=== PATIENT | female | born 1975 | race Caucasian/White ===

== ENCOUNTER 2016-09-20 23:26 | Emergency (ER) | payer MEDICAID, OTHER ==
[~2016-09-20] VITALS: Ht 154.9 cm; Wt 67.0 kg
[2016-09-20 23:35] VITALS: Ht 154.9 cm; Wt 67.0 kg
[2016-09-21] MEDS ORDERED: POLY10DR19 RIGHT EYE (00:52)
[2016-09-21] MEDS ORDERED: GUAI118L22 PO (00:52)
--- NOTE | 2016-09-21 16:30 | ERD ---
ER Documentation Chief Complaint Date/Time DATE: 09/21/16 TIME: 16:27 Chief Complaint Rt eye redness,body aches, sore throat HPI This is a 41-year-old female presenting to the department for right eye redness and discharge 1 week. Patient reports watery and yellow discharge from right eye. Patient denies pain. Patient states she has difficulty opening her eye in the morning crusting of yellow discharge. No fevers or chills. Patient also reports generalized body aches, sore throat and dry nonproductive cough 1 week. No difficulty breathing, shortness of breath, difficulty swallowing, muffled voice or drooling. No wheezing, chest pain or weakness. Patient states cough is worse at night and is having sleeping due to cough. Requesting cough syrup. Has used DayQuil without relief of symptoms. ROS All systems reviewed and are negative except as per history of present illness. Medications Home Meds Active Scripts Guaifenesin/Codeine Phosphate (CHERATUSSIN AC SYRUP) 118 Ml Liquid, 10 ML PO Q6H Y for COUGH, #118 ML Prov:EMILY SANTANA NP 09/21/16 Polymyxin B Sulfate-TMP* (Polymyxin B-TMP Eye Drops*) 10 Ml Drops, 1 DROP RIGHT EYE QID for 7 Days, EA Prov:EMILY SANTANA NP 09/21/16 Allergies Allergies: Coded Allergies: No Known Allergy (Unverified , 09/20/16) PMhx/Soc Hx Alcohol Use: No Hx Substance Use: No Hx Tobacco Use: No Physical Exam Vitals Vital Signs Date Time Temp Pulse Resp B/P Pulse Ox O2 Delivery O2 Flow Rate FiO2 09/20/16 23:35 99.0 89 18 138/71 97 Physical Exam Const: No acute distress Head: Atraumatic Eyes: Normal Conjunctiva ENT: Normal External Ears, Nose and Mouth. Neck: Full range of motion..~ No meningismus. Resp: Clear to auscultation bilaterally Cardio: Regular rate and rhythm, no murmurs Abd: Soft, non tender, non distended. Normal bowel sounds Skin: No petechiae or rashes Back: No midline or flank tenderness Ext: No cyanosis, or edema Neur: Awake and alert Psych: Normal Mood and Affect Procedures/MDM ED course Patient remains stable thought visit. MDM: 41 year old female presents to ER with right eye redness and discharge. Physical exam and symptoms consistent with bacterial conjunctivitis. Denies blurry vision, loss of vision or visual changes. Denies eye pain or foreign body sensation. Patient also has dry, non productive cough. No wheezing, chest pain, shortness of breath or difficulty breathing. Oxygen saturation 97% on room air. No fevers r chills. Requesting cough syrup to take at night to help her sleep. Low suspicion for foreign body or retinal detachment. Patient likely has bacterial conjunctivitis. Patient is appropriate for outpatient management and will be discharged with prescription for polymyxin B-TMP drops and Cheratussin syrup. Instructed patient to follow up with PCP in the next 2-3 days for reassessment. Return to ED for any new or worsening symptoms. Note provided for work absence. Patient verbalizes understanding. All questions answered at discharge. Departure Diagnosis: Primary Impression: Conjunctivitis Conjunctivitis type: acute Acute conjunctivitis type: bacterial Laterality : right Qualified Code: H10.31 - Acute bacterial conjunctivitis of right eye Additional Impression: URI (upper respiratory infection) URI type: unspecified viral URI Qualified Code: J06.9 - Viral upper respiratory tract infection Condition: Stable Patient Instructions: Conjunctivitis Caused by Infection Ref[facility] Usted se aragon hecho un examen mdico de control que le indica que no est en lyudmila condicin que requiera tratamiento urgente en el Departamento de Emergencia. Un estudio ms profundo y el tratamiento de reza condicin pueden esperar sin ningn riesgo hasta que usted sea atendida/o en el consultorio de reza mdico o lyudmila cl keny. Es responsabilidad suya arreglar lyudmila иван para el seguimiento del larry. MANEJO DE CONDICIONES NO URGENTES EN EL FUTURO 1) Si usted tiene un mdico de atencin primaria: Usted debera llamar a reza mdico de atencin primaria antes de venir al departamento de emergencia. Despus de las horas de consultorio, reza doctor o reza asociado/a est disponible por telfono. El mdico o enfermero de david en el servicio telefnico puede asesorarle por magui medio para atender el problema, o larry contrario se puede programar lyudmila иван. 2) Si usted no tiene un mdico de atencin primaria: Llame al mdico o clnica de referencia que aparece abajo alexis las horas de consultorio para hacer lyudmila иван para que le vean. CLINICAS: [facility] [phone] [facility] [phone] [facility] [phone] [place] [address] [phone] [place] [address] [phone] [facility] [phone] [address] [facility]. [facility] () Payal se aragon hecho un examen mdico de control que le indica que no est en lyudmila condicin que requiera tratamiento urgente en el Departamento de Emergencia. Un estudio ms profundo y el tratamiento de reza condicin pueden esperar sin ningn riesgo hasta que ted sea atendida/o en el consultorio de reza mdico o lyudmila cl keny. Es responsabilidad suya arreglar lyudmila иван para el seguimiento del larry. MANEJO DE CONDICIONES NO URGENTES EN EL FUTURO 1) Si usted tiene un mdico de atencin primaria: Usted debera llamar a reza mdico de atencin primaria antes de venir al departamento de emergencia. Despus de las horas de consultorio, reza doctor o reza asociado/a est disponible por telfono. El mdico o enfermero de david en el servicio telefnico puede asesorarle por magui medio para atender el problema, o larry contrario se puede programar lyudmila иван. 2) Si usted no tiene un mdico de atencin primaria: Llame al mdico o condado institucions de referencia que aparece abajo alexis las horas de consultorio para hacer lyudmila иван para que le vean. SI USTED NO PUEDE PAGAR PARA AKUA UN MEDICO puede ir a: [facility] [address] [place] [address] [facility] [address] [place] [address] [facility] [address] [place] [address] [facility] [address] [place], [place] [id number] Additional Instructions: Llame al doctor MAANA y nathaly lyudmila ИВАН PARA DENTRO DE 2-3 CARRERA.Dgale a la secretaria que nosotros le instruimos hacer esta иван.Avise o llame si reza condicin se empeora antes de la иван. Regresa aqui si peor o no mejor. Return to ED for any high fever, chest pain, difficulty breathing, shortness breath, wheezing, vomiting, diarrhea, abdominal pain or any new or worsening symptoms. EMILY SANTANA NP Sep 21, 2016 16:30
== END 2016-09-21 00:54 | disposition home or self-care (01) ==
LOC: FTE 23:26
DX: H10.31 Unspecified acute conjunctivitis, right eye (principal); J06.9 Acute upper respiratory infection, unspecified
CPT/HCPCS: 99283

== ENCOUNTER 2017-02-19 22:28 | Emergency (ER) | payer OTHER ==
[~2017-02-19] VITALS: Ht 160 cm; Wt 71.0 kg
[~2017-02-19 22:28] MED LIST: GUAI118L22 PO; POLY10DR19 RIGHT EYE
[2017-02-19 22:38] VITALS: Ht 160 cm; Wt 71.0 kg
[2017-02-20] MEDS ORDERED: ASPIRIN 325 MG TAB PO ONE (01:00)
[2017-02-20] MEDS ORDERED: DIAZEPAM 5 MG TAB PO ONE (01:00)
--- NOTE | 2017-02-20 01:29 | RADRPT ---
PROCEDURE: Chest. CLINICAL INDICATION: Chest pain. TECHNIQUE: Single frontal view of the chest was obtained. COMPARISON: None. FINDINGS: The cardiac silhouette is within normal limits. The aortic arch is unremarkable. There is no focal consolidation, vascular congestion or pleural effusion. There is no pneumothorax. IMPRESSION: No evidence for active cardiopulmonary disease. .Rupert Burk MD, MD Date Time Electronically viewed and signed by .Rupert Burk MD, on 02/20/2017 01:28 .T/
[2017-02-20 01:31] LABS: BASOPHILS % 0.3 % (0.0-2.0); EOSINOPHILS # 0.1 10^3/ul (0.0-0.5); EOSINOPHILS % 0.9 % (0.0-7.0); HEMATOCRIT 37.5 % (37.0-47.0); HEMOGLOBIN 11.9 g/dl (12.0-16.0); LYMPHOCYTES % 17.3 % (15.0-51.0); MEAN CORPUSCULAR HEMOGLOBIN 28.1 pg (29.0-33.0); MEAN CORPUSCULAR HGB CONC 31.7 g/dl (32.0-37.0); MEAN CORPUSCULAR VOLUME 88.4 fl (82.0-101.0); MEAN PLATELET VOLUME 9.6 fl (7.4-10.4); MONOCYTE # 0.6 10^3/ul (0.3-0.9); MONOCYTES % 4.7 % (0.0-11.0); NEUTROPHIL # 8.9 10^3/ul (1.6-7.5); NEUTROPHILS % 76.4 % (39.0-77.0); PLATELET COUNT 254 10^3/UL (140-415); RED BLOOD COUNT 4.24 10^6/ul (4.20-5.40); RED CELL DISTRIBUTION WIDTH 13.6 % (11.5-14.5); WHITE BLOOD COUNT 11.7 10^3/ul (4.8-10.8)
[2017-02-20 01:32] LABS: ADD SCAN DIFF NO
[2017-02-20 01:47] LABS: INR 0.92; PROTIME 12.4 Sec (12.2-14.2)
[2017-02-20 01:48] LABS: PARTIAL THROMBOPLASTIN TIME 25.6 Sec (25.0-35.0)
[2017-02-20 01:50] LABS: ANION GAP 16 (8-16); BLOOD UREA NITROGEN 13 mg/dl (7-20); CARBON DIOXIDE 26 mmol/L (21-31); CHLORIDE 99 mmol/L (97-110); CREATININE 0.51 mg/dl (0.44-1.00); GLUCOSE 105 mg/dl (70-220); SODIUM 137 mmol/L (135-144)
[2017-02-20 02:05] LABS: TROPONIN-I < 0.012 ng/ml (0.00-0.12)
--- NOTE | 2017-02-20 02:13 | ERD ---
ER Documentation Chief Complaint Date/Time DATE: 02/20/17 TIME: 02:00 Chief Complaint dizziness, nausea, low bp since this am HPI This 41-year-old female presents to the emergency department today for evaluation of intermittent dizziness, chest pressure headache and nausea. Patient reports that symptoms started today at 9 AM. She felt palpitations, sternal chest pain and dizziness. Patient reports that she has no symptoms at this time and has no past medical history of hypertension, diabetes, or hyperlipidemia. Patient denies family history of coronary artery disease, diabetes, IA, or CVA. Patient denies history of anxiety or stress. Denies shortness of breath. Back pain, shoulder pain or what diaphoresis ROS All systems reviewed and are negative except as per history of present illness. Medications Home Meds Active Scripts Aspirin (Aspirin) 81 Mg Chew, 81 MG PO DAILY for 30 Days, #30 TAB.CHEW Prov:SUGEYRAVI 02/20/17 Guaifenesin/Codeine Phosphate (CHERATUSSIN AC SYRUP) 118 Ml Liquid, 10 ML PO Q6H Y for COUGH, #118 ML Prov:EMILY SANTANA NP 09/21/16 Polymyxin B Sulfate-TMP* (Polymyxin B-TMP Eye Drops*) 10 Ml Drops, 1 DROP RIGHT EYE QID for 7 Days, EA Prov:EMILY SANTANA NP 09/21/16 Allergies Allergies: Coded Allergies: No Known Allergy (Unverified , 02/19/17) PMhx/Soc Medical and Surgical Hx: pt denies Medical Hx, pt denies Surgical Hx Hx Alcohol Use: No Hx Substance Use: No Hx Tobacco Use: No Physical Exam Vitals Vitals stable, triage notes reviewed Physical Exam Const: Well-appearing, well-hydrated, well-nourished no acute Head: Atraumatic Eyes: Normal Conjunctiva ENT: Normal External Ears, Nose and Mouth mucous membranes moist. Neck: Full range of motion..~ No meningismus. No JVD Resp: No chest wall tenderness, clear to auscultation bilaterally no rales wheezes or rhonchi, no egophony, no respiratory distress Cardio: Regular rate and rhythm, no murmurs, S1-S2, no S3-S4 Abd: Soft, non tender, non distended. Normal bowel sounds no epigastric tenderness Skin: Back: Ext: No cyanosis, or edema Neur: Awake and alert Psych: Normal Mood and Affect Results 24 hrs Laboratory Tests Test 02/20/17 01:14 White Blood Count 11.710^3/ul Red Blood Count 4.2410^6/ul Hemoglobin 11.9g/dl Hematocrit 37.5% Mean Corpuscular Volume 88.4fl Mean Corpuscular Hemoglobin 28.1pg Mean Corpuscular Hemoglobin Concent 31.7g/dl Red Cell Distribution Width 13.6% Platelet Count 14590^3/UL Mean Platelet Volume 9.6fl Neutrophils % 76.4% Lymphocytes % 17.3% Monocytes % 4.7% Eosinophils % 0.9% Basophils % 0.3% Nucleated Red Blood Cells % 0.0/100WBC Neutrophils # 8.910^3/ul Lymphocytes # 2.010^3/ul Monocytes # 0.610^3/ul Eosinophils # 0.110^3/ul Basophils # 0.010^3/ul Nucleated Red Blood Cells # 0.010^3/ul Prothrombin Time 12.4Sec Prothrombin Time Ratio 1.0 INR International Normalized Ratio 0.92 Activated Partial Thromboplast Time 25.6Sec Sodium Level 137mmol/L Potassium Level 4.0mmol/L Chloride Level 99mmol/L Carbon Dioxide Level 26mmol/L Anion Gap 16 Blood Urea Nitrogen 13mg/dl Creatinine 0.51mg/dl Glucose Level 105mg/dl Calcium Level 9.0mg/dl Troponin I < 0.012ng/ml Thyroid Stimulating Hormone (TSH) 1.940MIU/L Current Medications Medications (Trade) Dose Ordered Sig/Demetrius Route PRN Reason Start Time Stop Time Status Last Admin Dose Admin Aspirin (Aspirin) 325 mg ONCE ONCE PO 02/20/17 01:00 02/20/17 01:01 DC 02/20/17 01:36 Diazepam (Valium) 5 mg ONCE ONCE PO 02/20/17 01:00 02/20/17 01:01 DC 02/20/17 01:36 Interpretation text CBC shows no evidence of hemorrhage or infection Chemistry shows no evidence of significant electrolyte abnormalities or renal insufficiency Liver function tests shows no evidence of acute biliary or hepatic dysfunction Coagulation study showed no concerning coagulpathy Lipase shows no evidence of acute pancreatitis Troponin show no evidence of acute myocardial injury or coronary ischemia Thyroid-stimulating hormone without evidence of hypo-or hyper thyroid disease Procedures/MDM PROCEDURE: Chest. CLINICAL INDICATION: Chest pain. TECHNIQUE: Single frontal view of the chest was obtained. COMPARISON: None. FINDINGS: The cardiac silhouette is within normal limits. The aortic arch is unremarkable. There is no focal consolidation, vascular congestion or pleural effusion. There is no pneumothorax. IMPRESSION: No evidence for active cardiopulmonary disease. Electronically viewed and signed by .Rupert Burk MD, on 02/20/2017 01:28 EKG: Rate/Rhythm: Normal sinus rhythm ventricular rate 85 bpm QRS, ST, T-waves: No changes consistent w/ acute ischemia Impression: No evidence of ischemia or arrhythmia This pleasant 41-year-old female presents to the emergency department with symptoms that have resolved. Patient is coming in for evaluation of intermittent chest pain not present at this time, dizziness and nausea with headache symptoms are not present, states they were mild when she came into the emergency department but has resolved. Patient is here with her , patient denies anxiety history or recent stressors. Patient denies family history of coronary artery disease diabetes or CVA. Patient has no past medical history reported. AMI, aortic aneurysm, pancreatitis, cholecystitis, nephrolithiasis not suspected. Patient will be evaluated further for chest pain regardless. Patient's laboratory testing on his unremarkable for cardiopulmonary disease. ECG shows a normal sinus rhythm at a ventricular rate of 85 bpm with no ectopy, chest x-ray shows no evidence of infiltrate, atelectasis, or cardiopulmonary disease. Thyroid-stimulating hormone normal no evidence of thyroid disease. Patient receives 325 mg of aspirin, and Valium in emergency department, with improvement of symptoms. Patient will be discharged home with continued aspirin, and strict return to emergency department precaution. Today's workup and finding has been unremarkable regardless patient to return to emergency department for chest pain shortness of breath, dizziness or palpitations until further evaluation by operator technician if indicated. Patient was instructed to go to primary care physician for referral to cardiology. I feel the patient is stable for discharge at this time. I have discussed results, examination findings, the treatment plan with the patient and family present prior to discharge. Indications for emergent reevaluation, side effects of medication were also discussed. All questions were answered. Patient verbalizes understanding and agrees with plan of care. Departure Diagnosis: Primary Impression: Dizziness Additional Impression: Chest pain Chest pain type: unspecified Qualified Code: R07.9 - Chest pain, unspecified type Condition: Good Patient Instructions: Chest Pain, Uncertain Cause Additional Instructions: Thank you for for coming to [facility] for your care today. Please ask your nurse or provider if you have questions about your care today and do not leave until all your questions have been answered. Please use any medications given as directed and follow-up with your doctor (or the doctor you were referred to) in the next 2-3 days. If you do not have a primary care doctor you may follow up at the [facility] (listed below). You may also use motrin and tylenol as needed for fever and/or pain unless instructed otherwise by your provider or nurse. Indications for more urgent follow-up have been discussed, but you may return to the Emergency Department at ANY time for any worrisome or worsening symptoms. If you have abdominal pain, please know that no test or exam you received is perfect and you should follow up within 8 hours for continued pain. If you had any imaging studies today, such as an X-Ray or CT Scan, these studies will be reviewed later by a radiologist. You will be called if there are important findings that were not identified today, so make sure the contact information you provided at registration is correct. If you received any narcotic pain control medicine today, such as Vicodin, Morphine or Dilaudid, your coordination and judgment may be affected for a number of hours. Please do not drive or operate heavy machinery, and you may want someone to assist you at home. If you were given a prescription for narcotic medication, be aware that it is very addictive- use sparingly and only if necessary. RAVI MAYES Feb 20, 2017 02:12
[2017-02-20] MEDS ORDERED: ASPI81TA3 PO (02:32)
[2017-02-20 03:14] VITALS: BP 100/59; PULSE 90; RESP 16
== END 2017-02-20 03:15 | disposition home or self-care (01) ==
LOC: FTE 22:28
DX: R42 Dizziness and giddiness (principal); R07.9 Chest pain, unspecified; Z79.82 Long term (current) use of aspirin
CPT/HCPCS: 71010; 80048; 84443; 84484; 85025; 85610; 85730; 93005; Z7610; 36415

== ENCOUNTER 2018-02-12 | Emergency (ER) | END 2018-02-12 03:25 | disposition home or self-care (01) ==